=== PATIENT | female | born 1980 | race Caucasian/White ===

== ENCOUNTER 2019-01-24 11:14 | Outpatient (RCR) | payer SELFPAY | END 2019-04-24 23:59 | disposition home or self-care (01) | LOC: ANHLAB 11:14 | PROVIDERS: PCP Family Medicine; Visit Provider Advanced Practice Midwife | DX: O20.0 Threatened abortion (principal); Z3A.00 Weeks of gestation of pregnancy not specified | CPT/HCPCS: 36415; 84702 ==

== ENCOUNTER 2019-07-25 11:11 | Observation (INO) | payer OTHER, SELFPAY ==
--- NOTE | ~2019-07-25 | US_ITS ---
EXAMINATION: US OB follow up w [facility] DATE: 07/25/2019 13:15 INDICATION: Cardiac decelerations on in office examination. TECHNIQUE: Real-time pelvic ultrasound was performed. The interpreting radiologist was not present fo r the study. COMPARISON: None. FINDINGS: There is a single living fetus in vertex presentation. The placenta is anterior. heart rate is 123 beats per minute (bpm). Normal amniotic fluid index of 16.5 cm (5th%-95%: 8.6-24.2 cm at 32 week s estimated gestational age). The following biometric data were obtained: BPD: 9.0 cm -> 63 weeks 2 days Head circumference: 32.5 cm -> 36 weeks 6 days Abdominal circumference: 31.4 cm -> 35 weeks 2 days Femur length: 6.4 cm -> 33 weeks 0 days These measurements are concordant. Head circumference to abdominal circumference ratio: 1.04 (normal range 0.93-1.10). Estimated weight: 2555 g (+/-) 383 g, 5 lbs 10 oz (+/-) 14 oz Biophysical profile performed by the technologist: breathing (30 sec sustained breathing in 30 minutes): 2 out of 2 movement (3 gross body movements in 30 minutes: 2 out of 2 tone (one episode of hrzukgq-bxosdezmg-fjwocfz limb movement): 2 out of 2 Amniotic fluid pocket (2 cm): 2 out of 2 Total score: 8 out of 8 IMPRESSION: 1. Single living fetus in vertex presentation. 2. Normal amniotic fluid index of 16.5 cm. 3. Biophysical profile 8 out of 8. 4. Gestational age by ultrasound of 35 weeks 3 day(s) +/- 2 weeks and 3 days with ultrasound estimat ed date of delivery (JUDY) of 08/26/2019. Estimated weight is >97th percentile by Hadlock criteri a when 09/16/2019 is used as the JUDY. Please correlate with clinical information or earlier ultrasound s for most accurate JUDY. Reviewed, dictated and finalized at location A. IMPRESSION: 1. Single living fetus in vertex presentation. 2. Normal amniotic fluid index of 16.5 cm. 3. Biophysical profile 8 out of 8. 4. Gestational age by ultrasound of 35 weeks 3 day(s) +/- 2 weeks and 3 days w ith ultrasound estimated date of delivery (JUDY) of 08/26/2019. Estimated w eight is >97th percentile by Hadlock criteria when 09/16/2019 is used as the JUDY . Please correlate with clinical information or earlier ultrasounds for most ac curate JUDY.
[2019-07-25 12:01] VITALS: BP 127/72; PULSE 84
[2019-07-25 12:21] VITALS: BP 117/64; PULSE 87
[2019-07-25 12:40] VITALS: BP 108/88; PULSE 78
[2019-07-25 13:01] VITALS: BP 118/72; PULSE 84
[2019-07-25 13:16] VITALS: BMI 43.7
--- NOTE | 2019-07-25 13:16 | OBADM ---
This patient, Hazel Horowitz, admitted to the OB room OB Post 116 for observation. Patient/family oriented to hospital policies and general routines including ID bracelet, bed and alarms, visiting hours, pain management, procedures, bathroom and other care routines, personal items, smoking policy, room service/diet, and visiting hours. Patient/Family are encouraged to report perceived risks to care and to ask questions if they do not understand what they are told or what they should do.
--- NOTE | 2019-08-15 07:49 | PM.OBTRLD ---
OB - Triage/Final Diagnosis Final Diagnosis (1) heart rate/rhythm abnormality affecting management of mother: Code(s): O36.8390 - Maternal care for abnormalities of the heart rate or rhythm, unspecified trimester, not applicable or unspecified Status: Acute
== END 2019-07-25 14:36 | disposition home or self-care (01) ==
PROVIDERS: Admitting Provider Obstetrics & Gynecology; PCP Family Medicine; Visit Provider Obstetrics & Gynecology
DX: O36.8330 Maternal care for abnormalities of the fetal heart rate or rhythm, third trimester, not applicable or unspecified (principal); Z3A.35 35 weeks gestation of pregnancy; O09.523 Supervision of elderly multigravida, third trimester
CPT/HCPCS: 76816; 76819; G0378; G0379

== ENCOUNTER 2019-09-07 09:48 | Outpatient (CLI) | payer OTHER, SELFPAY ==
[2019-09-07 10:48] LABS: Hematocrit 36.7 % (37.0-47.0); Hemoglobin 12.4 g/dL (12.0-15.0); Mean Corpuscular HGB Conc 33.8 g/dl (32-36); Mean Corpuscular Hemoglobin 30.9 pg (26-34); Mean Corpuscular Volume 91.5 fl (80-100); Mean Platelet Volume 10.8 fl (7.4-10.4); Platelet Count Result 233 k/mm3 (150-375); Red Blood Count 4.01 M/mm3 (4.2-5.4); Red Cell Distribution Width 15.3 % (11.5-14.5); White Blood Count 10.7 K/mm3 (4.5-10.0)
[2019-09-08 07:34] LABS: Rapid Plasma Reagin Non-Reactive (NonReactive)
== END 2019-09-07 09:49 | disposition home or self-care (01) ==
PROVIDERS: PCP Family Medicine; Visit Provider Obstetrics & Gynecology
DX: Z01.812 Encounter for preprocedural laboratory examination (principal)
CPT/HCPCS: 36415; 85027; 86592; 86850; 86900; 86901

== ENCOUNTER 2019-09-08 09:57 | Observation (INO) | payer OTHER, SELFPAY ==
[2019-09-08 10:21] VITALS: BMI 45.2
[2019-09-08 10:31] VITALS: BP 120/70; PULSE 80
[2019-09-08] MEDS: LACTATED RINGERS 1,000 ML 125 ML IV CONT ×2 (10:44→11:24)
[2019-09-08 10:46] VITALS: BP 118/80; PULSE 76
--- NOTE | 2019-09-08 10:47 | WPDANESEPPF ---
Anes - Initial Pre Proc Eval Procedure: Operation Date: 09/08/19 12:00 Proposed Procedures p Section - Salvador Shearer MD Date/Time: 09/08/19 10:47 Surgeon: Salvador Shearer MD Pre Op Diagnosis: scheduled Patient Data Age: 39 Gender: F Height: 5 ft 7 in Weight: 131 kg Last Vital Signs Pulse 76 09/08/19 10:46 BP 118/80 09/08/19 10:46 Allergies Allergy/AdvReac Type Severity Reaction Status Date / Time No Known Allergies Allergy Mild Verified 08/22/19 13:01 Home Medications Medication Instructions Recorded Confirmed Type PNV cmb#95-ferrous fumarate-FA 1 tablet PO DAILY 08/22/19 08/22/19 History [] insulin NPH isoph U-100 human 5 unit SUBCUT HS 08/22/19 08/22/19 History [Humulin N NPH U-100 Insulin] Patient hx anesthesia problems: none Family hx anesthesia problems: none PMFSH Past Medical History Medical History Gestational diabetes Family History Family History Grandparent Diabetes mellitus Heart disease Sibling Diabetes mellitus Social History Social History Smoking status: Former smoker Tobacco type: cigarettes Second hand tobacco smoke exposure: No Substance use: never Spiritual care concerns: No Anes - Eval Final PreProcedure Day of Procedure 09/08/19 10:47 Patient weight: morbidly obese Heart: regular rate and rhythm Lungs: clear to auscultation Airway: Mallampati scale class II Neurological: alert and oriented Last oral intake: >/= 8 hours ASA classification: III Emergent: no Anesthetic plan: proceed Anesthesia type and monitoring: regional spinal and standard monitoring Informed Consent: The patient's anesthetic plan and its attendant risks and benefits were discussed with the patient/family/POA. Questions were solicited and answers provided to the satisfaction of the patient/family/POA.
[2019-09-08 11:01] VITALS: BP 120/68; PULSE 77
[2019-09-08 11:16] VITALS: BP 131/74; PULSE 79
[2019-09-08 11:22] VITALS: BP 131/74; PULSE 74
[2019-09-08 11:44] LABS: Glucose Point of Care 81 (65-105)
--- NOTE | 2019-09-08 13:20 | PC.NURSE ---
Addendum entered by Mary Bustillo RN 09/08/19 13:23: this note was entered at time of 1230 09/08/2019 Original Note: Dr. Shearer at bedside performed ultrasound for presentation confirmation. vertex presentation was confirmed. c section was cancelled. discussed plan of induction. discharge order received and induction of labor was scheduled for tomorrow 09/09/2019 at 0700.
--- NOTE | 2019-09-13 06:26 | PM.OBTRLD ---
OB - Triage/Final Diagnosis Visit Information Date of evaluation: 09/08/19 Evaluation Laboratory results: Laboratory Tests 09/08/19 11:42 POC Capillary Glucose 81 Final Diagnosis (1) Term : Code(s): Z34.90 - Encounter for supervision of normal , unspecified, unspecified trimester Status: Acute
== END 2019-09-08 13:15 | disposition home or self-care (01) ==
PROVIDERS: Admitting Provider Obstetrics & Gynecology; PCP Family Medicine; Visit Provider Obstetrics & Gynecology
DX: O24.419 Gestational diabetes mellitus in pregnancy, unspecified control (principal); Z3A.38 38 weeks gestation of pregnancy
CPT/HCPCS: 59025; 96360; G0378; G0379; J2274; J7120

== ENCOUNTER 2019-09-09 06:41 | Inpatient (IN) | payer OTHER, SELFPAY ==
[2019-09-08 13:33] VITALS: BMI 45.2
[2019-09-09] VITALS (101 sets, daily range): BP systolic 91–144; BP diastolic 38–103; PULSE 48–126; RESP 16–20; TEMP 36.2–36.8; O2SAT 96–100
--- NOTE | ~2019-09-09 | XR_ITS ---
EXAMINATION: XR abdomen/kub 1V EXAM DATE: 09/09/2019 13:49 INDICATION: No surgical count. TECHNIQUE: Frontal projection(s) of the lower abdomen and pelvis for interpretation. There is no garcia or study for comparison. FINDINGS: No radiopaque foreign bodies identified. Nonobstructive bowel gas pattern. There are no os seous abnormalities identified. No suspicious soft tissue calcifications identified. IMPRESSION: Unremarkable XR abdomen/kub 1V exam. Reviewed, dictated and finalized at location G.
--- NOTE | ~2019-09-09 | XR_ITS ---
EXAMINATION: XR abdomen/kub 1V DATE: 09/09/2019 14:18 INDICATION: No instrument count. TECHNIQUE: A supine view of the abdomen was obtained. COMPARISON: Abdomen radiograph at 1:46 PM FINDINGS: There are no dilated loops of bowel. Skin luba are noted. No radiopaque foreign body. IMPRESSION: 1. No radiopaque foreign body. Reviewed, dictated and finalized at location A.
--- NOTE | 2019-09-09 06:41 | LDADM ---
This patient, Hazel Horowitz, was admitted to Labor/Delivery/Recovery 109 on 09/09/19 at 06:41. Plans for labor, pain management and were discussed with patient. Patient/family oriented to hospital policies and general routines including ID bracelet, bed and alarms, visiting hours, pain management, procedures, bathroom and other care routines, personal items, smoking policy, room service/diet and guest tray routines, infant security routines, and visiting hours. Patient/Family are encouraged to report perceived risks to care and to ask questions if they do not understand what they are told or what they should do. See OBIX for further documentation.
[2019-09-09] MEDS: LACTATED RINGERS 1,000 ML 125 ML IV CONT ×3 (07:33→12:11)
[2019-09-09] MEDS: OXYTOCIN 30 UNITS/NS 500 ML 30 UNITS/500 ML BAG 125 UNITS IV CONT ×2 (07:38→16:30)
--- NOTE | 2019-09-09 07:46 | PM.IMHP ---
H&P: HPI History of Present Illness Chief complaint: IOL Narrative: Hazel Horowitz is a 39 year old female 4 para 2011 at 39 weeks and 0 days gestation who presents for induction of labor. She has had a breech presentation done in the last 2 weeks. She was scheduled for delivery yesterday. The presentation change to vertex. Her is complicated by insulin-dependent gestational diabetes with excellent control, Circumvallate placenta , advanced maternal age, and morbid obesity. She presents today for induction of labor. We are going to proceed with Pitocin and to lower the station of the presenting part. to rupture membranes later today. Review of Systems Constitutional: Constitutional: Reports no additional constitutional complaints, Denies fatigue, Denies headache(s), Denies lethargy and Denies weakness Eyes: Eyes: Reports no additional eye complaints, Denies blurry vision and Denies photophobia ENT: Reports as per HPI, Denies headache(s) and Denies neck pain Cardiovascular: Cardiovascular: Denies chest pain, Denies diaphoresis, Denies leg edema, Denies palpitations and Denies dyspnea Respiratory: Respiratory: Denies hemoptysis, Denies dyspnea and Denies wheezing Gastrointestinal: Gastrointestinal: Denies abdominal pain, Denies melena, Denies bloating, Denies hematochezia, Denies nausea and Denies vomiting Genitourinary: Genitourinary: Reports no additional female genitourinary complaints Musculoskeletal: Musculoskeletal: Denies joint swelling, Denies neck pain, Denies numbness and Denies stiffness Neurologic: Denies Abnormal speech present, Denies confusion, Denies headache(s), Denies numbness and Denies weakness Psychiatric: Psychiatric: Denies anxiety, Denies confusion, Denies depression, Denies homicidal ideation and Denies suicidal ideation Endocrine: Endocrine: Denies fatigue and Denies palpitations Allergic/Immunologic: Allergic/Immunologic: Denies wheezing PMF Social History Social History Smoking status: Former smoker Tobacco type: cigarettes Second hand tobacco smoke exposure: No Substance use: never Gender identity (if verbalized by the patient): Female Sexual Orientation (if Verbalized by the Patient): Straight or Heterosexual Spiritual care concerns: No Meds Home Medications and Allergies Home Medications Medication Instructions Recorded Confirmed Type Humulin N NPH U-100 Insulin 5 unit SUBCUT HS 07/06/20 07/23/20 History PNV cmb#95-ferrous fumarate-FA 1 tablet PO DAILY 08/22/19 09/08/19 History [] Allergies Allergy/AdvReac Type Severity Reaction Status Date / Time No Known Allergies Allergy Mild Verified 08/22/19 13:01 Vital Signs Vital Signs - 24 hr 09/09/19 07:18 09/09/19 07:31 Pulse Rate 85 81 Blood Pressure 133/74 135/76 Exam Const: General: healthy appearing, comfortable and no acute distress; No confusion Orientation/consciousness: No confusion Eyes: Direct Ophthalmoscopy: No photophobia Resp: Auscultation: clear to auscultation bilaterally, no rales, no rhonchi and no wheezes Cardio: Rate: regular rate Heart sounds: no click, no murmurs and no rubs GI: Inspection: non-distended GI Palp: No abdominal tenderness Auscultation: normal bowel sounds Neuro: General: No confusion Speech: No Abnormal speech present Extrem: General: normal to inspection, no pedal edema and no calf tenderness Assessment and Plan Assessment and plan (1) Gestational diabetes: Code(s): O24.419 - Gestational diabetes mellitus in , unspecified control Status: Acute (2) Morbid obesity: Code(s): E66.01 - Morbid (severe) obesity due to excess calories Status: Acute (3) Circumvallate placenta: Code(s): O43.119 - Circumvallate placenta, unspecified trimester Status: Acute Assessment and Plan: this patient is a 39-ye
[2019-09-09 07:47] LABS: Glucose Point of Care 143 (65-105)
--- NOTE | 2019-09-09 10:45 | WPDANESEPP ---
Anes - Eval Pre Procedure Procedure: Labor Pain Management Date/Time: 09/09/19 10:45 Surgeon: Manfred Preop Diagnosis: Pain during labor Pre Op Diagnosis: IOL Patient Data Age: 39 Gender: F Height: 5 ft 7 in Weight: 131 kg Last Vital Signs Temp 97.5 F L 09/09/19 08:05 Pulse 91 09/09/19 10:31 BP 129/102 H 09/09/19 10:31 Allergies Allergy/AdvReac Type Severity Reaction Status Date / Time No Known Allergies Allergy Mild Verified 08/22/19 13:01 Home Medications Medication Instructions Recorded Confirmed Type Humulin N NPH U-100 Insulin 5 unit SUBCUT HS 08/22/19 09/08/19 History PNV cmb#95-ferrous fumarate-FA 1 tablet PO DAILY 08/22/19 09/08/19 History [] Laboratory Tests 09/09/19 07:18 POC Capillary Glucose 143 mg/dl H mg/dl (65-105) : gestational age (EDC 09/16/19) Patient hx anesthesia problems: none Family hx anesthesia problems: none PMFSH Past Medical History Medical History (Updated 09/09/19 @ 10:45 by Nandini Myers CRNA) Gestational diabetes Kidney stones, calcium oxalate Scoliosis Social History Social History Years smoked: 20 Smoking status: Former smoker Tobacco type: cigarettes Second hand tobacco smoke exposure: No Substance use: never Gender identity (if verbalized by the patient): Female Sexual Orientation (if Verbalized by the Patient): Straight or Heterosexual Spiritual care concerns: No Exam Day of Procedure 09/09/19 10:45
[2019-09-09 12:14] LABS: Glucose Point of Care 91 (65-105)
[2019-09-09] MEDS: ceFAZolin SODIUM 1 GM VIAL 3 GM IV PUSH (13:00)
--- NOTE | 2019-09-09 14:18 | PM.PROC ---
Procedure Note - Detailed Date of procedure: 09/09/19 Pre-op diagnosis: IOL distress, unwanted fertility Post-op diagnosis: same Procedure performed: emergency low-transverse delivery Description of procedure: The patient was taken the operating room. She was prepped and draped in the dorsal supine position with leftward tilt after induction of spinal anesthetic. When anesthesia was found to be adequate a low-transverse skin incision was made and carried down to the level the fascia with the knife. The fascial incision was made at the midline with a scalpel. The fascial incision was extended laterally with Telles scissors. The fascia was tented upward superior and inferior with Daniel clamps. The rectus muscles were dissected off bluntly. The rectus muscles at the midline. The preperitoneal fat was dissected bluntly at the superior aspect of the separate the rectus muscles. The peritoneal cavity was entered bluntly in the same area. The peritoneal incision was extended superior and inferior with good position of bladder. Bladder blade was inserted. A low-transverse incision was made on the uterus with the scalpel. It was carried down the level of the amniotic cavity with a knife. The amniotic cavity bluntly. The uterine incision was made laterally with blunt traction. The was delivered. The cord was clamped and cut. The infant was handed off to waiting pediatric staff. Cord bloods were obtained. The placenta was removed manually. The uterus was exteriorized. Uterus cleared of all clots and debris. Uterus closed in 0 Vicryl in a running locked fashion. An imbricating layer of 0 Vicryl was also placed on the to bolster the closure. Fallopian tube was grasped in the ampullary region with a [place]. It was raised away from the accompanying vein. A window was created in the broad ligament in this area of the tube. 0 Vicryl was used to ligate the proximal distal ends of the skeletonize region of the tube. The segment of the tube was resected with scissors. The cut surfaces were cauterized. On the contralateral side the procedure was performed identically. The uterus was returned to the abdomen. The gutters were cleared of all clots and debris. The fascia was closed 0 Vicryl in a running fashion. Subcutaneous tissue was irrigated and bleeding areas were cauterized. The skin was closed with subcuticular absorbable luba. The incision was covered with derma de la vega. The patient tolerated the procedure well. She was taken recovery room stable condition. Sponge, lap, needle counts were correct x2. Anesthesia: epidural Surgeon: Salvador Shearer MD Estimated blood loss (mL): 600 Drains: No Packing: No Pathology: none sent Complications: No immediate complications Condition: stable Disposition: floor Findings: Normal maternal anatomy. Average size infant with normal Apgars.
--- NOTE | 2019-09-09 14:20 | PM.OBPNVD ---
OB - PN: Subj Subjective Date/time seen: 09/09/19 14:20 artificial rupture of membranes was performed prior to the delivery. Large volumes of fluid egressed from the uterus and cervix. The head was engaged and applied to the cervix. No the umbilical cord was palpated at the opening of the cervix. Shortly after rupture of membranes the 0 heart tones went to 50 beats per minute and remained there for several minutes. We elected to perform emergency delivery. OB - PN: Obj Data Labs Labs: Laboratory Results - last 24 hr 09/09/19 09/09/19 07:18 12:10 POC Capillary Glucose 143 H 91 Imaging Radiologist's impression: Impressions Abdomen X-Ray 09/09/19 13:54 IMPRESSION: Unremarkable XR abdomen/kub 1V exam. OB - PN A/P Time Spent With Patient Time: Total time spent is greater than 50% in coordination of care (as documented) at patient's floor/unit and/or counseling patient:
--- NOTE | 2019-09-09 18:47 | PC.NURSE ---
1750 Pt admitted to room 283 per stretcher from labor and delivery after delivery of viable male at [address]. Mother has 2 children at home; she is choosing to breast feed this baby. FOB present. Mother made comfortable in bed; initial VSS and assessment WNL.
[2019-09-09] MEDS: IBUPROFEN 600 MG TABLET PO (19:00)
[2019-09-09] MEDS: DEXTROSE 5%/0.45% SOD CHL 1,000 ML 125 ML IV CONT (21:23)
[2019-09-10 00:39] VITALS: BP 118/58; PULSE 89; RESP 20; TEMP 36.9; O2SAT 97
[2019-09-10] MEDS: IBUPROFEN 600 MG TABLET PO ×4 (02:46→20:18)
[2019-09-10 04:46] VITALS: BP 106/60; PULSE 88; RESP 20; TEMP 36.8; O2SAT 96
[2019-09-10 05:14] LABS: Basophils Percent Auto 0.2 % (0.2-1.2); Eosinophils Percent Auto 0.3 % (0-4.4); Hematocrit 30.7 % (37.0-47.0); Hemoglobin 10.1 g/dL (12.0-15.0); Immature Granulocyte Absolute 0.05 K/mm3 (0.00-0.031); Immature Granulocyte Percent A 0.4 % (0-0.5); Lymphocytes Percent Auto 18.8 % (18.3-44.2); Mean Corpuscular HGB Conc 32.9 g/dl (32-36); Mean Corpuscular Hemoglobin 30.9 pg (26-34); Mean Corpuscular Volume 93.9 fl (80-100); Mean Platelet Volume 11.5 fl (7.4-10.4); Monocytes Percent Auto 8.1 % (2.6-8.5); Neutrophils Absolute Auto 8.5 K/mm3 (1.3-6.7); Neutrophils Percent Auto 72.2 % (45.5-73.1); Platelet Count Result 201 k/mm3 (150-375); Red Blood Count 3.27 M/mm3 (4.2-5.4); Red Cell Distribution Width 15.4 % (11.5-14.5); White Blood Count 11.7 K/mm3 (4.5-10.0)
[2019-09-10 07:30] VITALS: BP 122/69; PULSE 90; RESP 18; TEMP 36.7; O2SAT 96
[2019-09-10] MEDS: DOCUSATE SODIUM 100 MG CAPSULE PO ×2 (07:31→17:09)
[2019-09-10] MEDS: LANOLIN (LANSINOH) 7.5 GM CREAM 1 APPLIC TOPICAL (07:34)
--- NOTE | 2019-09-10 11:05 | WPDOBCIRC ---
OB [place] - Circumcision Consent: Potential risks, benefits, and alternatives have been discussed and questions answered. Family agrees to proceed with circumcision. Preoperative Diagnosis: Normal Foreskin. Postoperative Diagnosis: Normal Foreskin. Date of Circumcision: 09/10/19 Time of Circumcision: 11:00 Type of Circumcision: GOMCO with 1.3 Anesthesia: Dorsal Nerve Block Foreskin: The foreskin was examined and found to be grossly normal.
--- NOTE | 2019-09-10 11:11 | PM.OBPNVD ---
OB - PN: Subj Subjective Date/time seen: 09/10/19 11:11 OB - PN: Obj Data Labs CBC & Chem 7: 09/10/19 04:08 Labs: Laboratory Results - last 24 hr 09/09/19 09/10/19 12:10 04:08 WBC 11.7 H RBC 3.27 L Hgb 10.1 L Hct 30.7 L MCV 93.9 MCH 30.9 MCHC 32.9 RDW 15.4 H Plt Count 201 MPV 11.5 H Immature Gran % (Auto) 0.4 Neut % (Auto) 72.2 Lymph % (Auto) 18.8 Mckenzie % (Auto) 8.1 Eos % (Auto) 0.3 Baso % (Auto) 0.2 Lymph # (Auto) 2.20 Mckenzie # (Auto) 1.0 H Eos # (Auto) 0.0 Baso # (Auto) 0.0 Abs Immat Gran (auto) 0.05 H Absolute Neuts (auto) 8.5 H Absolute Nucleated RBC 0.0 Nucleated RBC % 0.0 POC Capillary Glucose 91 Imaging Radiologist's impression: Impressions Abdomen X-Ray 09/09/19 13:54 IMPRESSION: Unremarkable XR abdomen/kub 1V exam. Abdomen X-Ray 09/09/19 14:25 IMPRESSION: 1. No radiopaque foreign body. OB - PN A/P Time Spent With Patient Time: Total time spent is greater than 50% in coordination of care (as documented) at patient's floor/unit and/or counseling patient: Review of Systems Review of Systems: All systems reviewed & are unremarkable except as noted in HPI and below Exam Narrative: Exam Narrative: Fundus firm and vaginal flow controlled. Const: General: comfortable Chest: Breast/axilla inspection: normal inspection of the breasts Resp: Effort & Inspection: normal respiratory effort Auscultation: clear to auscultation bilaterally Cardio: Rate: regular rate GI: Auscultation: normal bowel sounds Psych: Appearance: grossly normal Affect: normal affect Attitude: cooperative Judgement: Good judgement present (Psych)
[2019-09-10 12:45] VITALS: BP 119/70; PULSE 83; RESP 18; TEMP 37.3; O2SAT 99
--- NOTE | 2019-09-10 14:32 | WPDANLDPN2 ---
Anes-Prog Note L&D Date/Time: 09/10/19 14:32 Comfortable throughout: labor and section Neuraxial method: epidural Neuro status: Neuro function grossly intact. Cardiovascular status: normal Respiratory status: normal Airway patency: baseline Mental status: baseline Post-Op hydration status: normal Vital Signs: Last Vital Signs Temp 36.8 C 09/10/19 04:46 Pulse 88 09/10/19 04:46 Resp 20 09/10/19 04:46 BP 106/60 09/10/19 04:46 Pulse Ox 96 09/10/19 04:46 Pain score (VAS): 0/10. Patient resting in bed at time of assessment, appears comfortable. Support person at bedside. I/O: Intake & Output 09/09/19 09/10/19 09/10/19 23:59 07:59 15:59 Intake Total 300 2425 240 Output Total 100 2900 Balance 200 -475 240 Post-procedural complaints: none Patient feedback: Patient satisfied with anesthetic care.
--- NOTE | 2019-09-10 14:35 | WPDANLDNPN2 ---
Anes-Prog Note L&D-Neuraxial Date/Time: 09/10/19 14:35 Neuraxial medications: epidural PF morphine Opiod-related complaints: none Patient feedback: Patient satisfied with post-operative pain management.
[2019-09-10 20:15] VITALS: BP 114/78; PULSE 83; PULSE 89; RESP 18; TEMP 37.1; O2SAT 100
[2019-09-10] MEDS: SIMETHICONE 80 MG TAB.CHEW PO (20:19)
[2019-09-11] MEDS: SIMETHICONE 80 MG TAB.CHEW PO ×4 (00:09→12:01)
[2019-09-11] MEDS: IBUPROFEN 600 MG TABLET PO ×2 (04:03→12:01)
--- NOTE | 2019-09-11 08:15 | PC.NURSE ---
PT introductions made and plan of care discussed per post op c section, pain management, breast feeding, daily care activities and pending discharge to home. PT verbalized understanding of such care.
[2019-09-11] MEDS: DOCUSATE SODIUM 100 MG CAPSULE PO (09:09)
[2019-09-11 09:10] VITALS: BP 119/73; PULSE 88; RESP 18; TEMP 36.7; O2SAT 100
--- NOTE | 2019-09-11 09:21 | P.PNOB_ITS ---
OB - PN: Subj Subjective Date/time seen: 09/11/19 09:21 OB - PN: Obj Data Labs CBC & Chem 7: 09/10/19 04:08 OB - PN A/P Plan day: 2 Plan: routine care and discharge home (Follow up with Dr Shearer this week.) Time Spent With Patient Time: Total time spent is greater than 50% in coordination of care (as docume nted) at patient's floor/unit and/or counseling patient: Time with patient: less than 15 minutes Review of Systems Review of Systems: All systems reviewed & are unremarkable except as noted in HPI and below Exam Narrative: Exam Narrative: Fundus firm and vaginal flow controlled. Incision is covered with 7 day dressing. 1+ edema in legs. No redness or warmth. Const: General: comfortable, no acute distress, alert and awake Chest: Breast/axilla inspection: normal inspection of the breasts Resp: Effort & Inspection: normal respiratory effort Auscultation: clear to auscultation bilaterally Cardio: Rate: regular rate GI: Auscultation: normal bowel sounds Psych: Appearance: grossly normal Affect: normal affect Attitude: cooperative Judgement: Good judgement present (Psych)
--- NOTE | 2019-09-11 10:30 | PC.NURSE ---
Patient viewed the discharge video Mother & Baby Care, The First Two Weeks . Patient was given the opportunity and encouraged to ask questions. Patient verbalized understanding of information shared and has been given the mother/baby guide for home reference.
--- NOTE | 2019-09-11 13:00 | PC.NURSE ---
Pt received discharge instructions per protocol and verbalized understanding of such instructions.
--- NOTE | 2019-09-11 13:47 | PC.NURSE ---
PT discharged to home ambulatory accompanied by spouse and and taken to waiting car. Follow up appts confirmed
[2019-09-13 07:54] VITALS: BP 136/64; PULSE 75; RESP 16; TEMP 36.8; O2SAT 100
--- NOTE | 2019-10-05 11:43 | PM.OBDSVD ---
DS: Admitting Diagnosis Admitting Diagnosis Admitting Diagnosis: IOL DS: Discharge Diagnosis Discharge Diagnosis (1) Sterilization: Code(s): Z30.2 - Encounter for sterilization Status: Acute (2) Term : Code(s): Z34.90 - Encounter for supervision of normal , unspecified, unspecified trimester Status: Acute (3) Gestational diabetes: Code(s): O24.419 - Gestational diabetes mellitus in , unspecified control Status: Acute OB - DS: Summary OB Procedures : NST and Ultrasound OB Procedures Intrapartum: and Tubal ligation OB Procedures: : None Peripartum Data Infant Delivery Method: Section Procedures: Procedures Operation Date: 09/09/19 13:15 Actual Procedures Side Surgeon p Section Salvador Shearer MD Status at Discharge Functional status at discharge: independent ambulation Time Spent with Patient Time attestation: Total time spent providing and/or coordinating discharge services: DS: Data Data Completed and Pending Completed studies during hospitalization: Pending at discharge 09/09/19 15:38 Surgical [PTH] Routine Discharge Plan Discharge Attending physician on discharge: Salvador Shearer Consulting providers: Virgen Gonzales ; Michael Simmons ; Taj Wesley V. Discharging Clinician: Virgen Gonzales Patient Disposition: Home, Self-Care Activity: may shower and pelvic rest Diet: as tolerated Wound Care Instructions: follow printed instructions Discharge Instructions: Education: Mom and Baby Guide Given to: Mother Follow-Up: Call your delivering provider's office for an appointment to be seen in: 1 Week Mom and baby should come to the [facility] for the follow-up appointment. Appointment Date/Time: September 13, 2019 at 8:00 am What to expect at your follow-up visit: Blood Pressure Check Call [phone] if you are unable to keep your appointment time. BREAST CARE: 1. Wear a snug supportive bra. 2. For engorgement discomfort: Breast Feeding: A. Apply warm moist washcloths B. Express milk as needed to relieve engorgement C. Wear loose clothing Bottle Feeding: A. May apply ice packs 3. For sore nipples: A. Identify correct latch-on B. Apply warm moist washcloths before and after nursing C. Air dry nipples after nursing D. May apply Lansinoh cream to nipples ABDOMINAL INCISION: (if applicable) 1. Allow incision to air dry 2. Do NOT use lotions for powders on your incision 3. When showering, allow soap and water to run over the incision, but do not wash incision PERINEAL CARE: 1. Until bleeding stops, use your jaylen bottle after urinating 2. Change your pad frequently throughout the day 3. No tub baths until seen by your physician - You may shower ACTIVITY: 1. Rest as much as possible. 2. Do not exercise or lift anything heavier than your baby (such as laundry or other children.) 3. Avoid stairs or driving as much as possible. 4. Do not put anything into the vagina. No douching, tampons, or sexual activity until seen by physician. NOTIFY PHYSICIAN IF YOU HAVE ANY QUESTIONS OR IF ANY OF THE FOLLOWING SYMPTOMS OCCUR: 1. If your incision becomes red, swollen, or more painful than what you have experienced in the hospital. 2. If your vaginal bleeding becomes foul smelling. 3. If your vaginal bleeding becomes more heavy than a period or if your bleeding changes from pink to bright red. However, you may pass an occasional walnut-sized clot once or twice for the first week . 4. If you experience a sharp, shooting pain in you calves. 5. If you discover a hard, reddened area on your breast or if you experience flu-like symptoms. 6. Call for temp 100.4 or greater DIET: 1. Eat regular, well-balanced meals. 2. Drink plenty of fluids daily.
== END 2019-09-11 13:47 | disposition home or self-care (01) | DRG 785 ==
LOC: ANHLDR 06:44 → ANHOB2 18:14
PROVIDERS: Admitting Provider Obstetrics & Gynecology; PCP Family Medicine; Visit Provider Obstetrics & Gynecology
PROC: 10D00Z1 Extraction of Products of Conception, Low, Open Approach (ICD-10-PCS; CPT 59514; principal; 2019-09-09 13:15)
DX: O76 Abnormality in fetal heart rate and rhythm complicating labor and delivery (principal); O43.113 Circumvallate placenta, third trimester; O99.214 Obesity complicating childbirth; E66.01 Morbid (severe) obesity due to excess calories; O69.82X0 Labor and delivery complicated by other cord entanglement, without compression, not applicable or unspecified; O24.424 Gestational diabetes mellitus in childbirth, insulin controlled; Z3A.39 39 weeks gestation of pregnancy; Z37.0 Single live birth; Z87.891 Personal history of nicotine dependence; Z30.2 Encounter for sterilization
CPT/HCPCS: 36415; 74018; 85025; 88302; 88307; A9270; J0131; J0690; J2274; J2370; J2590; J2795; J7120

== ENCOUNTER 2019-09-18 22:13 | Observation (INO) | payer OTHER, SELFPAY ==
--- NOTE | 2019-09-18 22:13 | OBADM ---
This patient, Hazel Horowitz, admitted to the OB room OB Post 115 for observation. Patient/family oriented to hospital policies and general routines including ID bracelet, bed and alarms, visiting hours, pain management, procedures, bathroom and other care routines, personal items, smoking policy, room service/diet, and visiting hours. Patient/Family are encouraged to report perceived risks to care and to ask questions if they do not understand what they are told or what they should do.
[2019-09-18 22:33] VITALS: BP 138/64; PULSE 60; TEMP 36.7
[2019-09-18 22:40] VITALS: BP 138/64; PULSE 60
[2019-09-18 22:47] LABS: Basophils Absolute Auto 0.1 K/mm3 (0.0-0.1); Basophils Percent Auto 0.7 % (0.2-1.2); Eosinophils Absolute Auto 0.1 K/mm3 (0-0.3); Eosinophils Percent Auto 1.4 % (0-4.4); Hematocrit 32.3 % (37.0-47.0); Hemoglobin 10.6 g/dL (12.0-15.0); Immature Granulocyte Absolute 0.05 K/mm3 (0.00-0.031); Immature Granulocyte Percent A 0.6 % (0-0.5); Lymphocytes Absolute Auto 2.29 K/mm3 (0.9-3.2); Lymphocytes Percent Auto 28.5 % (18.3-44.2); Mean Corpuscular HGB Conc 32.8 g/dl (32-36); Mean Corpuscular Hemoglobin 30.4 pg (26-34); Mean Corpuscular Volume 92.6 fl (80-100); Mean Platelet Volume 9.2 fl (7.4-10.4); Monocytes Absolute Auto 0.7 K/mm3 (0.1-0.6); Monocytes Percent Auto 9.1 % (2.6-8.5); Neutrophils Absolute Auto 4.8 K/mm3 (1.3-6.7); Neutrophils Percent Auto 59.7 % (45.5-73.1); Platelet Count Result 343 k/mm3 (150-375); Red Blood Count 3.49 M/mm3 (4.2-5.4); Red Cell Distribution Width 14.4 % (11.5-14.5)
[2019-09-18 22:51] LABS: Add Urine Microscopic? YES; Appearance Urine Clear (Clear); Bilirubin Urine Negative (Negative); Blood Urine 2+ (Negative); Color Urine Yellow (Yellow); Glucose Urine UA Negative (Negative); Ketones Urine Negative (Negative); Leukocyte Esterase Ur Trace LEU/UL (NEGATIVE); Mucus Urine Rare /lpf; Nitrate Urine Negative (Negative); Protein Urine Negative (Negative); Specific Grav Ur 1.011 (1.001-1.035); Squamous Epithelial Cell Urine Occasional /hpf (Few); Urobilinogen Urine Negative mg/dL (<2.0)
[2019-09-18 22:54] LABS: Creatinine Urine 61.2 mg/dL; Total Protein Urine Random 11 mg/dL
[2019-09-18 22:59] LABS: Alanine Aminotransferase 30 U/L (4-35); Albumin Level 3.4 g/dL (3.5-5.1); Alkaline Phosphatase 96 U/L (38-126); Anion Gap 8.7 mmol/L (7-16); Aspartate Amino Transferase 27 U/L (14-36); Bilirubin,Total 0.3 mg/dL (0.2-1.3); Blood Urea Nitrogen 11 mg/dL (7-17); Calcium 8.4 mg/dL (8.4-10.2); Carbon Dioxide 25 mmol/L (22-30); Chloride 109 mmol/L (98-107); Estimated Glomerular Filt Rate > 60; Glucose 92 mg/dL (65-105); Potassium 3.7 mmol/L (3.4-5.0); Sodium 139 mmol/L (137-145)
[2019-09-18 23:11] VITALS: BP 135/68; PULSE 54
--- NOTE | 2019-09-18 23:15 | PC.NURSE ---
Updated Dr. Shearer with patient lab results. Orders given to discharge patient to home and have patient follow-up in the office this week.
--- NOTE | 2019-10-16 19:54 | P.PNOB_ITS ---
OB - Triage/Final Diagnosis Evaluation Laboratory results: Laboratory Tests 09/18/19 09/18/19 09/18/19 22:41 22:41 22:41 WBC 8.0 RBC 3.49 L Hgb 10.6 L Hct 32.3 L MCV 92.6 MCH 30.4 MCHC 32.8 RDW 14.4 Plt Count 343 D MPV 9.2 Immature Gran % (Auto) 0.6 H Neut % (Auto) 59.7 Lymph % (Auto) 28.5 [place] % (Auto) 9.1 H Eos % (Auto) 1.4 Baso % (Auto) 0.7 Lymph # (Auto) 2.29 [place] # (Auto) 0.7 H Eos # (Auto) 0.1 Baso # (Auto) 0.1 Abs Immat Gran (auto) 0.05 H Absolute Neuts (auto) 4.8 Absolute Nucleated RBC 0.0 Nucleated RBC % 0.0 Sodium Potassium Chloride Carbon Dioxide Anion Gap BUN Creatinine Estim Creat Clear Calc Estimated GFR Glucose Uric Acid Calcium Total Bilirubin AST ALT Alkaline Phosphatase Total Protein Albumin Urine Color Yellow Urine Appearance Clear Urine pH 6.0 Ur Specific [place] 1.011 Urine Protein Negative Urine Glucose (UA) Negative Urine Ketones Negative Ur Blood (Man) 2+ H Urine Nitrate Negative Urine Bilirubin Negative Urine Urobilinogen Negative Ur Leukocyte Esterase Trace H Urine RBC 3-5 H Urine WBC 4-6 H Ur Squamous Epith Cells Occasional Urine Mucus Rare U Random Total Protein 11 Urine Creatinine 61.2 09/18/19 22:41 WBC RBC Hgb Hct MCV MCH MCHC RDW Plt Count MPV Immature Gran % (Auto) Neut % (Auto) Lymph % (Auto) [place] % (Auto) Eos % (Auto) Baso % (Auto) Lymph # (Auto) [place] # (Auto) Eos # (Auto) Baso # (Auto) Abs Immat Gran (auto) Absolute Neuts (auto) Absolute Nucleated RBC Nucleated RBC % Sodium 139 Potassium 3.7 Chloride 109 H Carbon Dioxide 25 Anion Gap 8.7 BUN 11 Creatinine 0.90 Estim Creat Clear Calc Not Reportable Estimated GFR > 60 Glucose 92 Uric Acid 7.0 Calcium 8.4 Total Bilirubin 0.3 AST 27 ALT 30 Alkaline Phosphatase 96 Total Protein 7.0 Albumin 3.4 L Urine Color Urine Appearance Urine pH Ur Specific [place] Urine Protein Urine Glucose (UA) Urine Ketones Ur Blood (Man) Urine Nitrate Urine Bilirubin Urine Urobilinogen Ur Leukocyte Esterase Urine RBC Urine WBC Ur Squamous Epith Cells Urine Mucus U Random Total Protein Urine Creatinine Final Diagnosis (1) Gestational hypertension: Code(s): O13.9 - Gestational [-induced] hypertension without significant proteinuria, unspecified trimester
== END 2019-09-18 23:25 | disposition home or self-care (01) ==
PROVIDERS: Admitting Provider Obstetrics & Gynecology; PCP Family Medicine; Visit Provider Obstetrics & Gynecology
DX: O13.5 Gestational [pregnancy-induced] hypertension without significant proteinuria, complicating the puerperium (principal)
CPT/HCPCS: 36415; 80053; 81001; 82570; 84156; 84550; 85025; 87086; 87088; G0378; G0379

== ENCOUNTER 2019-09-20 11:35 | Outpatient (CLI) | payer OTHER, SELFPAY ==
[2019-09-20 12:10] LABS: Basophils Absolute Auto 0.1 K/mm3 (0.0-0.1); Basophils Percent Auto 0.7 % (0.2-1.2); Eosinophils Absolute Auto 0.1 K/mm3 (0-0.3); Eosinophils Percent Auto 0.9 % (0-4.4); Hematocrit 37.9 % (37.0-47.0); Hemoglobin 12.2 g/dL (12.0-15.0); Immature Granulocyte Absolute 0.07 K/mm3 (0.00-0.031); Immature Granulocyte Percent A 0.8 % (0-0.5); Lymphocytes Absolute Auto 2.18 K/mm3 (0.9-3.2); Lymphocytes Percent Auto 24.9 % (18.3-44.2); Mean Corpuscular HGB Conc 32.2 g/dl (32-36); Mean Corpuscular Hemoglobin 30.2 pg (26-34); Mean Corpuscular Volume 93.8 fl (80-100); Mean Platelet Volume 9.3 fl (7.4-10.4); Monocytes Absolute Auto 0.5 K/mm3 (0.1-0.6); Monocytes Percent Auto 6.1 % (2.6-8.5); Neutrophils Absolute Auto 5.8 K/mm3 (1.3-6.7); Neutrophils Percent Auto 66.6 % (45.5-73.1); Platelet Count Result 362 k/mm3 (150-375); Red Blood Count 4.04 M/mm3 (4.2-5.4); White Blood Count 8.7 K/mm3 (4.5-10.0)
[2019-09-20 12:16] VITALS: BP 117/57; PULSE 68
[2019-09-20 12:23] LABS: Alanine Aminotransferase 28 U/L (4-35); Albumin Level 3.9 g/dL (3.5-5.1); Alkaline Phosphatase 99 U/L (38-126); Anion Gap 9.7 mmol/L (7-16); Aspartate Amino Transferase 29 U/L (14-36); Bilirubin,Total 0.5 mg/dL (0.2-1.3); Blood Urea Nitrogen 11 mg/dL (7-17); Carbon Dioxide 27 mmol/L (22-30); Chloride 106 mmol/L (98-107); Estimated Glomerular Filt Rate > 60; Glucose 95 mg/dL (65-105); Potassium 3.7 mmol/L (3.4-5.0); Sodium 139 mmol/L (137-145); Uric Acid 7.4 mg/dL (2.5-7.5)
[2019-09-20 12:32] VITALS: BP 112/43; PULSE 63
--- NOTE | 2019-09-20 12:35 | PC.NURSE ---
Called Ponce Gonzales CNM with lab results and BPs. Instructed to offer pain medication for headache. June D/C home.
[2019-09-20 12:37] VITALS: BP 129/68; PULSE 53
== END 2019-09-20 12:40 | disposition home or self-care (01) ==
LOC: ANHOBOP 11:40 → ANHOBPP 11:40
PROVIDERS: Advanced Practice Midwife; PCP Family Medicine; Visit Provider Obstetrics & Gynecology
DX: O13.9 Gestational [pregnancy-induced] hypertension without significant proteinuria, unspecified trimester (principal); Z3A.00 Weeks of gestation of pregnancy not specified
CPT/HCPCS: 36415; 80053; 84550; 85025; 99199

== ENCOUNTER → 2021-06-07 15:50 | Outpatient (CLI) | payer OTHER, SELFPAY ==
--- NOTE | ~2021-06-07 | MM_ITS ---
EXAMINATION: MM screening ling BI w miryam HISTORY: Screening TECHNIQUE: Craniocaudal and mediolateral oblique 3-D tomosynthesis images were obtained and synthetic 2-D images were generated. CAD analysis was submitted and interpreted. COMPARISON: 01/06/2019 BREAST PARENCHYMAL COMPOSITION: The breasts are almost entirely fatty. FINDINGS: There is no evidence of suspicious mass, calcification, or architectural distortion to sugg est malignancy in either breast. There has been no suspicious interval change. IMPRESSION: 1. No mammographic evidence of malignancy. 2. Recommend routine screening mammography in one year. BI-RADS Category 1: Negative Reviewed, dictated and finalized at location A.
== END ==
PROVIDERS: PCP Nurse Practitioner Obstetrics & Gynecology; Visit Provider Nurse Practitioner Obstetrics & Gynecology
DX: Z12.31 Encounter for screening mammogram for malignant neoplasm of breast (principal)
CPT/HCPCS: 77063; 77067

== ENCOUNTER 2021-09-10 14:09 | Emergency (ER) | payer OTHER, SELFPAY ==
--- NOTE | ~2021-09-10 | XR_ITS ---
EXAMINATION: [id number] INDICATION: Right-sided chest pain TECHNIQUE: A frontal view of the chest and 3 views of the right ribs were obtained. COMPARISON: None FINDINGS: The lungs are free of acute opacities. No pleural effusion or pneumothorax. The cardiomedia stinal silhouette is normal. A calcified granulomas noted in the right lung base. No displaced rib fr acture is identified. IMPRESSION: 1. No acute cardiopulmonary abnormality or evidence of displaced rib fracture. Reviewed, dictated and finalized at location B.
[2021-09-10 14:19] VITALS: BP 118/74; PULSE 79; RESP 18; TEMP 36.5; O2SAT 100
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
== END 2021-09-10 15:05 | disposition home or self-care (01) ==
PROVIDERS: Emergency Provider Registered Nurse; PCP Family Medicine
DX: S20.211A Contusion of right front wall of thorax, initial encounter (principal); V43.62XA Car passenger injured in collision with other type car in traffic accident, initial encounter; M41.9 Scoliosis, unspecified
CPT/HCPCS: 71101; 99213; G0463

== ENCOUNTER 2022-08-15 07:27 | Outpatient (CLI) | payer OTHER, SELFPAY ==
--- NOTE | ~2022-08-15 | MM_ITS ---
EXAMINATION: MM screening ling BI w miryam HISTORY: Screening mammogram TECHNIQUE: Craniocaudal and mediolateral oblique 3-D tomosynthesis images were obtained and synthetic 2-D images were generated. CAD analysis was submitted and interpreted. COMPARISON: June 07, 2021, January 06, 2019 bilateral screening mammogram examinations BREAST PARENCHYMAL COMPOSITION: There are scattered areas of fibroglandular density. FINDINGS: There is no evidence of suspicious mass, calcification, or architectural distortion to sugg est malignancy in either breast. There has been no suspicious interval change. IMPRESSION: 1. No mammographic evidence of malignancy. 2. Recommend routine screening mammography in one year. BI-RADS Category 1: Negative Reviewed, dictated and finalized at location A.
== END 2022-08-15 07:28 | disposition home or self-care (01) ==
LOC: CHSIMG 07:30
PROVIDERS: PCP Family Medicine; Visit Provider Obstetrics & Gynecology
DX: Z12.31 Encounter for screening mammogram for malignant neoplasm of breast (principal)
CPT/HCPCS: 77063; 77067